=== PATIENT | female | born 1940 | race Caucasian/White ===

== ENCOUNTER → 2017-05-18 | Outpatient (CLI) | payer MEDICARE | END | disposition home or self-care (01) | LOC: PCVCIMAG 13:29 | DX: I44.1 Atrioventricular block, second degree (principal); I42.9 Cardiomyopathy, unspecified; I49.5 Sick sinus syndrome; I10 Essential (primary) hypertension; I77.9 Disorder of arteries and arterioles, unspecified; E11.8 Type 2 diabetes mellitus with unspecified complications; Z95.0 Presence of cardiac pacemaker; Z79.899 Other long term (current) drug therapy | CPT/HCPCS: 80061; 93005; 93280; 93306; G0463 ==

== ENCOUNTER → 2017-08-19 | Outpatient (CLI) | payer MEDICARE | END | disposition home or self-care (01) | LOC: PCVCCLINIC 10:59 | DX: I10 Essential (primary) hypertension (principal); I42.9 Cardiomyopathy, unspecified; I49.5 Sick sinus syndrome; I77.9 Disorder of arteries and arterioles, unspecified; E11.8 Type 2 diabetes mellitus with unspecified complications; Z95.0 Presence of cardiac pacemaker; Z79.899 Other long term (current) drug therapy; Z88.0 Allergy status to penicillin | CPT/HCPCS: 93280 ==